=== PATIENT | male | born 1960 | race Two or more races ===

== ENCOUNTER 2025-03-30 20:53 | Inpatient (IN) | payer BC, OTHER, SELFPAY ==
--- NOTE | 2025-03-30 20:58 | EKG_ITS ---
[facility] Test Date: 2025-03-30 Pat Name: SARA OROZCO Department: Room: - Gender: Male [employer]rier: : 1960 Requested By: ED Temporary Provider Order Number: [id number] Reading MD: ED Temporary Provider Measurements Intervals Ramona Rate: 176 P: [place]: QRS: -31 QRSD: 92 T: 21 QT: 265 QTc: 455 Interpretive Statements ATRIAL FIBRILLATION WITH RAPID VENTRICULAR RESPONSE LEFT AXIS DEVIATION [QRS AXIS < -30] CRITICAL TEST RESULT No previous ECG available for comparison /store/S0/[id number].pdf
--- NOTE | 2025-03-30 21:07 | EDNOTE_ITS ---
ED Fever RME/HPI General Chief Complaint: General Adult/Misc Complain Stated Complaint: SENT HERE BY PCP. PT HAD ABNORMAL EKG Time Seen by Provider: 03/30/25 21:27 Arrival date/time: 03/30/25 20:53 RME / HPI RME / HPI Narrative: This section includes all my notes and documentations, including HPI, PE, and ED course. Dm Vital MD HPI: 64yo male with no significant past medical history with subjective fever for the last few days. And chills and generalized body aches. No fever or cough. He is not on any daily medications. No other complaints reported. ROS: All negative except as documented in HPI. Physical Exam: General: Alert and oriented. No acute distress when remaining still. Eyes: Conjunctivae and lids clear. ENT: No nasal congestion. Neck: Supple. Heart: Irregularly irregular tachycardia. Lungs: No respiratory distress. Good air movement. No significant rhonchi, wheezing, rales. Abdomen: Soft and nontender. Normal bowel sounds. No distension. No rebound or guarding. Back: No CVA tenderness. Skin: Warm and dry. Neuro: Alert and oriented X 3. I reviewed all diagnostic test results. My interpretation of the EKG is atrial fibrillation with RVR. My interpretation of the chest x-ray is NAD. Blood and urine test unremarkable. COVID/Influenza negative. At this point, diagnoses include new onset atrial fibrillation with RVR. Treatment here included Cardizem bolus and drip. Significant event noted. I discussed the case with our hospitalist. About the presentation and exam and diagnostics and treatments here. And need of further care in the hospital. Will accept the patient. Dm Vital MD Related Data Allergies Allergy/AdvReac Type Severity Reaction Status Date / Time No Known Allergies Allergy Verified 03/30/25 21:14 Review of Systems Review of Systems Systems Reviewed: All systems reviewed, normal except as documented Physical Exam Narrative Physical exam: As noted in HPI. Course Course Course Narrative: CXR is ordered for determining the etiology of fever. Quality Measures none Orders Category Date Time Status Admit to Inpatient Status Routine Admission 03/30/25 23:52 Active Patient Condition Routine Admission 03/30/25 23:52 Ordered Bedside COVID-19 Antigen Test NOW Care 03/30/25 21:09 Active Bedside Influenza A&B Antigen Test NOW Care 03/30/25 21:09 Completed COVID-19 Screening Questionnaire NOW Care 03/30/25 23:13 Active Decision to Admit X1 Care 03/30/25 23:13 Completed EKG (ED ONLY) *Do not use* NOW Care 03/30/25 20:58 Completed Miscellaneous Nursing Order NOW Care 03/30/25 23:52 Active Notify provider NEEDED Care 03/30/25 23:52 Active Saline [Insert IV] NOW Care 03/30/25 21:09 Active Straight [In and Out Catheter] X1 Care 03/30/25 21:09 Active Consult to Cardiology Routine Cons 03/30/25 23:49 Ordered EKG (ED Only) Stat Exams 03/30/25 20:58 Draft XR chest 1V portable Stat Exams 03/30/25 21:09 Completed BNP [B-Type Natriuretic Peptide] Stat Lab 03/30/25 21:18 Completed Bilirubin,Direct Stat Lab 03/30/25 21:18 Completed Blood Culture (Lab) Stat Lab 03/30/25 21:18 Received CBC Stat Lab 03/30/25 21:18 Completed CMP [Comprehensive Metabolic Panel] Stat Lab 03/30/25 21:18 Completed CRP [C-Reactive Protein] Stat Lab 03/30/25 21:18 Completed D-Dimer Stat Lab 03/30/25 21:18 Completed ESR [Sed Rate (ESR)] Stat Lab 03/30/25 21:18 Completed Free T4 (Free Thyroxine) Stat Lab 03/30/25 21:18 Completed Lactate (Lactic Acid) Stat Lab 03/30/25 21:18 Completed Magnesium Stat Lab 03/30/25 21:18 Completed PT [Prothrombin Time with INR] Stat Lab 03/30/25 21:18 Completed PTT [Partial Thromboplastin Time] Stat Lab 03/30/25 21:18 Completed Procalcitonin Stat Lab 03/30/25 21:18 Completed TSH [Thyroid Stimulating Hormone] Stat Lab 03/30/25 21:18 Completed Troponin I Stat Lab 03/30/25 21:18 Completed UA, C/S IF [Urinalysis, C/S if Indicated] Stat Lab 03/30/25 23:46 Completed DILTIAZEM in D5W 125 MG Med 03/30/25 21:09 Discontinued 125 mg in 125 ml IV 5 mg/hr DILTIAZEM in D5W 125 MG Med 03/30/25 23:48 Active 125 mg in 125 ml IV 7.5 mg/hr Diltiazem Inj [Cardizem Inj] Med 03/30/25 21:08 Discontinued 25 mg IV X1 ONE Code Status Routine Oth 03/30/25 23:50 Ordered Vital Signs Vital signs: Vital Signs Temperature 98.6 F 03/30/25 21:08 Pulse Rate 176 H 03/30/25 21:08 Respiratory Rate 19 03/30/25 21:08 Blood Pressure 153/90 H 03/30/25 21:08 Pulse Oximetry (%) 97 03/30/25 21:08 Oxygen Delivery Method Room Air 03/30/25 21:08 Fever MDM Narrative MDM Narrative:: 64yo male with no significant past medical history with subjective fever for the last few days. And chills and generalized body aches. No fever or cough. He is not on any daily medications. No other complaints reported. Patient data External records reviewed:: [facility] previous records (Per chart review, patient has no previous ED visits or admissions to this facility.) Clinical information provided by:: patient Social determinants that could affect healthcare access:: none Patient has the following chronic illnesses:: none How is presenting disease/condition affected by chronic disease/condition?: no chronic disease Evaluation data The following diagnostics were reviewed and interpreted by me:: lab results, rad iology exam(s) and EKG tracing(s) (My interpretation of the EKG is: Atrial fibrillation (176 bpm) with nonspecific ST-T changes. Dm Vital MD) Lab and/or radiology exams considered but not ordered:: none Interpretation Summary: I reviewed all diagnostic test results. My interpretation of the EKG is atrial fibrillation with RVR. My interpretation of the chest x-ray is NAD. Blood and urine test unremarkable. COVID/Influenza negative. Medications / Prescriptions Medications or Prescriptions considered but not ordered:: none Medication administrations:: Medication Administration History Acetaminophen (Acetaminophen 325 Mg Tablet) 650 mg PO Q6H PRN PRN Reason: Fever >100.4 or pain Stop: 04/29/25 23:54 Enoxaparin Sodium (Enoxaparin Sod Inj 40 Mg/0.4 Ml Syringe) 40 mg SC QDAY TK Stop: 04/14/25 08:59 Diltiazem HCl (Diltiazem In D5w 125 Mg) 125 mg in 125 mls @ 7.5 mls/hr IV .[id number] [facility] Stop: 04/29/25 23:47 Last Admin: 03/31/25 00:01 Dose: 7.5 mg/hr, 7.5 mls/hr Documented By: EF Discontinued Medications Diltiazem HCl (Diltiazem Inj 5 Mg/Ml Vial 5 Ml) 25 mg IV X1 ONE Stop: 03/30/25 21:09 Last Admin: 03/30/25 21:22 Dose: 25 mg Documented By: EF Diltiazem HCl (Diltiazem In D5w 125 Mg) 125 mg in 125 mls @ 5 mls/hr IV .Q24H [facility] Stop: 04/29/25 21:08 Last Admin: 03/30/25 21:22 Dose: 5 mg/hr, 5 mls/hr Documented By: EF Ondansetron HCl (Ondansetron Inj 2 Mg/Ml Inj 2 Ml) 4 mg IVP Q6H PRN; Protocol PRN Reason: NAUSEA OR VOMITING Stop: 04/29/25 23:54 Potassium Chloride (Potassium Chloride 10% 20 Meq/15 Ml Udc) 40 meq PO X1 ONE Stop: 03/31/25 00:06 Last Admin: 03/31/25 00:56 Dose: 40 meq Documented By: EF Cardizem bolus and drip. Consultations Consultation(s) initiated? (list below): Yes Consultation #1 (Physician, Specialty, Details): I discussed the case with our hospitalist. About the presentation and exam and diagnostics and treatments here. And need of further care in the hospital. Will accept the patient. Diagnosis Fever Differential Diagnosis: community acquired pneumonia, viral infection, influenza and other (COVID, URI) Most likely diagnosis given after review of the tests above:: New onset atrial fibrillation with RVR Admission Indicated Admission indicated?: indicated Explain why admission is indicated or not indicated:: New onset atrial fibrillation with RVR Admission Request Was there a request for admission?: Yes Admission Attestation Admission request attestation: Discussed case with Hospitalist service regarding admission. Discussed patients ED course, exam findings, labs, and radiology results. The Hospitalist [agrees] to accept the patient for admission. Disposition Plan Disposition Plan: Admit Critical Care Time Critical Care Time Critical Care Time: Yes Total Critical Care Time (min.): 35 Attestation: Due to a high probability of clinically significant, life threatening det erioration, the patient required my highest level of preparedness to intervene emergently and I personally spent this critical care time directly and personally managing the patient. This critical care time included obtaining a history; examining the patient; ordering and review of studies; arranging urgent treatment with development of a management plan; evaluation of patient's response to treatment; frequent reassessment; and discussions with family and other providers. It was exclusive of separately billable procedures and treating other patients and teaching time. Dm Vital MD Discharge Plan Plan Patient Disposition: Admit Acute Care w/in Hospital Problem List Clinical Impression: Atrial fibrillation with RVR
[2025-03-30 21:08] VITALS: BP 153/90; PULSE 176; RESP 19; TEMP 37; O2SAT 97
--- NOTE | 2025-03-30 21:09 | XR_ITS ---
Examination: AP chest single view TECHNIQUE: AP portable upright chest single view Date and time: March 30, 2025, 2107 hours INDICATIONS: Fever shortness of breath today FINDINGS: Normal heart size Ectatic thoracic aorta. No pneumonia or pulmonary edema IMPRESSION: No pneumonia or pulmonary edema
[2025-03-30 21:19] VITALS: BMI 33.9
[2025-03-30 21:22] VITALS: BP 151/11; BP 151/111; PULSE 155; PULSE 171
[2025-03-30] MEDS: DILTIAZEM INJ 5 MG/ML VIAL 5 ML 25 MG IV (21:22)
[2025-03-30] MEDS: DILTIAZEM in D5W 125 MG 125 MG/125 ML BAG IV (21:22)
[2025-03-30 21:30] LABS: Lactate (Lactic Acid) 1.3 mMol/L (0.4-2.0)
[2025-03-30 21:32] VITALS: PULSE 102
[2025-03-30 21:32] LABS: Basophils # (Auto) 0.1 Thou/mm3 (0.0-0.2); Basophils % (Auto) 1 % (0-2.5); Eosinophils # (Auto) 0.1 Thou/mm3 (0.0-0.5); Eosinophils % (Auto) 1 % (0-10); Hematocrit 47.0 % (41.0-53.0); Hemoglobin 15.6 g/dL (13.5-16.0); Immature Granulocytes Auto 0.04 Thou/mm3 (0.00-0.00); Lymphocytes # (Auto) 2.8 Thou/mm3 (1.0-4.8); Lymphocytes % (Auto) 24 % (10-50); Mean Corpuscular HGB Conc 33.2 g/dl (31.0-37.0); Mean Corpuscular Hemoglobin 29.1 pg (25.0-35.0); Mean Corpuscular Volume 88 fL (80-100); Monocytes # (Auto) 1.7 Thou/mm3 (0.0-0.8); Monocytes % (Auto) 15 % (0-12); Neutrophils # (Auto) 6.6 Thou/mm3 (1.8-7.7); Neutrophils % (Auto) 58 % (37-80); Nucleated Red Blood Cell # 0.00 Thou/mm3 (0.00-0.00); Nucleated Red Blood Cell % 0 /100 WBC (0); Platelet Count 312 Thou/mm3 (140-440); RDW Standard Deviation 41.0 fL (35.1-43.9); Red Blood Count 5.37 Miln/mm3 (4.50-5.90); White Blood Count 11.4 Thou/mm3 (3.8-10.6)
[2025-03-30 21:48] LABS: INR 1.0 (0.9-1.3); Partial Thromboplastin Time 30.5 Seconds (22.0-36.0); Prothrombin Time 11.1 Seconds (9.0-12.2)
[2025-03-30 21:50] LABS: Sed Rate (ESR) 57 mm/hr (0-20)
[2025-03-30 22:26] LABS: D-Dimer 657 ng/mL (<600)
[2025-03-30 22:36] LABS: Alanine Aminotransferase 10 U/L (10-49); Albumin, Serum 4.8 gm/dL (3.4-4.8); Albumin/Globulin Ratio 1.5 (1.2-2.2); Alkaline Phosphatase 90 U/L (46-116); Anion Gap 11 (7-16); Aspartate Amino Transferase 16 U/L (0-34); BUN/Creatinine Ratio 11 Ratio (12-20); Bilirubin,Direct 0.2 mg/dL (0.0-0.3); Bilirubin,Total 0.8 mg/dL (0.3-1.2); Blood Urea Nitrogen 13 mg/dL (9-23); Calcium 9.9 mg/dL (8.3-10.6); Calcium (Corrected) 9.9 mg/dL (8.5-10.1); Carbon Dioxide 23.7 mMol/L (20.0-31.0); Chloride 104 mMol/L (98-107); Creatinine (Component) 1.2 mg/dL (0.6-1.3); Estimated Creatinine Clearance 79.8 mL/min (>60); Free T4 (Free Thyroxine) 1.48 ng/dL (0.89-1.76); Globulin 3.3 gm/dL (2.3-3.5); Glucose 110 mg/dL (74-106); Magnesium 2.0 mg/dL (1.6-2.6); Osmolality,Calculated 278 (275-295); Potassium 3.7 mMol/L (3.4-5.1); Procalcitonin 0.10 ng/ml (0.0-0.49); Sodium 139 mMol/L (136-145); Thyroid Stimulating Hormone 2.90 uIU/mL (0.55-4.78); Total Protein 8.1 gm/dL (5.7-8.2); Troponin I < 0.020 ng/mL (0.0-0.045); eGFR > 60 See Note
[2025-03-30 22:48] LABS: C-Reactive Protein 4.7 mg/dL (0.0-0.9)
[2025-03-30 22:52] LABS: B-Type Natriuretic Peptide 67 pg/mL (0-100)
[2025-03-30 23:50] LABS: Collection Type, Urine Clean Catch; Squamous Epithelial Cell,Urine 0 /hpf (0-5)
[2025-03-31] VITALS (9 sets, daily range): BP systolic 116–138; BP diastolic 83–104; PULSE 69–118; RESP 18–27; TEMP 36–37.2; O2SAT 93–96
--- NOTE | 2025-03-31 | PD.RESHP ---
Documentation for date of: 03/31/25 HPI History of Present Illness Chief complaint: afib w/ RVR History of present illness: 64 y/o M with no significant past medical history presented from his PCP with complaints of A-fib with RVR. Per the patient he has been complaining of fevers, chills for 5 days, and went to see his PCP. At the office he was told he needed to go to the ED for a fast heart rate. In ED patient noted to have A-fib with RVR, confirmed by EKG which showed heart rate 176. Patient given Cardizem bolus and placed on Cardizem drip, at time of exam heart rate was between 100?125. Patient denied chest pain, shortness of breath, headache, fatigue, lightheadedness, weakness, palpitations. Patient also denied nausea, vomiting, dysuria, constipation, diarrhea. ED COURSE: Labs significant for: WBC 11.4, ESR 57, CRP 4.7, potassium 3.7. Imaging significant for: Chest x-ray negative, EKG showing A-fib with RVR at 176 bpm. Patient received diltiazem bolus and drip in the ED. Has remained hemodynamically stable, afebrile. PMH: None PSH: None SH: Denies alcohol, tobacco, illicit drug use Allergies:?NKDA Medications: None Review of Systems Review of Systems Systems Reviewed: All systems reviewed, normal except as documented Past Medical History Past Medical History Comments PMH COMMENT: PMH: None PSH: None SH: Denies alcohol, tobacco, illicit drug use Allergies:?NKDA Medications: None Exam Vital Signs Temp Pulse Resp BP Pulse Ox O2 Del Method 98.6 F 102 H 19 151/11 H 97 Room Air 03/30/25 21:08 03/30/25 21:32 03/30/25 21:08 03/30/25 21:22 03/30/25 21:08 03/30/25 21:08 Narrative Exam PE: Gen: Well-developed and well-nourished. HEENT: NCAT, PERRLA, EOMI, MMM, anicteric conjunctivae. CVS: normal S1 and S2. No M/R/G. A-fib, tachycardia. Resp: CTA B/L. No rhonchi, rales, crackles or wheezing. Abd: soft, non-tender, non-distended. BS+ in all 4 quadrants. MSK: Good ROM in BUE & BLE. No edema or rash. Neuro: CN II-XII grossly intact. Strength 5/5 in BUE & BLE. Alert and oriented x3. Psych: appropriate mood and affect. Results: Labs 03/31/25 04:39 03/30/25 21:18 Labs: Short CBC 03/30/25 Range/Units 21:18 WBC 11.4 H (3.8-10.6) Thou/mm3 Hgb 15.6 (13.5-16.0) g/dL Hct 47.0 (41.0-53.0) % Plt Count 312 (140-440) Thou/mm3 BMP 03/30/25 21:18 Sodium 139 Potassium 3.7 Chloride 104 Carbon Dioxide 23.7 BUN 13 Creatinine 1.2 Glucose 110 H Calcium 9.9 Cardiac Enzymes 03/30/25 Range/Units 21:18 Troponin I < 0.020 (0.0-0.045) ng/mL Liver Function 03/30/25 Range/Units 21:18 Total Bilirubin 0.8 (0.3-1.2) mg/dL Direct Bilirubin 0.2 (0.0-0.3) mg/dL AST 16 (0-34) U/L ALT 10 (10-49) U/L Alkaline Phosphatase 90 (46-116) U/L Albumin 4.8 (3.4-4.8) gm/dL Quality Measures Quality Measures VTE prophylaxis Advance care planning discussed with:: patient and spouse Medications Home Medications and Allergies Allergies Allergy/AdvReac Type Severity Reaction Status Date / Time No Known Allergies Allergy Verified 03/30/25 21:14 Visit Medications Acetaminophen (Acetaminophen 325 Mg Tablet) 650 mg PO Q6H PRN PRN Reason: Fever >100.4 or pain Stop: 04/29/25 23:54 Enoxaparin Sodium (Enoxaparin Sod Inj 40 Mg/0.4 Ml Syringe) 40 mg SC QDAY ON [facility] OF [facility] Stop: 04/14/25 08:59 Diltiazem HCl (Diltiazem In D5w 125 Mg) 125 mg in 125 mls @ 7.5 mls/hr IV .[id number] TK Stop: 04/29/25 23:47 Ondansetron HCl (Ondansetron Inj 2 Mg/Ml Inj 2 Ml) 4 mg IVP Q6H PRN; Protocol PRN Reason: NAUSEA OR VOMITING Stop: 04/29/25 23:54 Discontinued Medications Diltiazem HCl (Diltiazem Inj 5 Mg/Ml Vial 5 Ml) 25 mg IV X1 ONE Stop: 03/30/25 21:09 Last Admin: 03/30/25 21:22 Dose: 25 mg Diltiazem HCl (Diltiazem In D5w 125 Mg) 125 mg in 125 mls @ 5 mls/hr IV .Q24H TK Stop: 04/29/25 21:08 Last Admin: 03/30/25 21:22 Dose: 5 mg/hr, 5 mls/hr Assessment & Plan Plan 64 y/o M with no significant past medical history presented from his PCP with complaints of A-fib with RVR, admitted for new onset A-fib. #A-fib with RVR, new onset Patient was sent to ED from doctor's office due to new onset A-fib with RVR. In ED EKG showed A-fib with RVR at 176 bpm, exam no murmur on auscultation. Patient received Cardizem bolus and drip in ED, heart rate decreased to 100?125. [id number] score 1 - No indication for anticoagulation at this time. - Cardiology Dr. Wesley consulted, appreciate recommendations - Cardizem drip 7.5 mg/h - Maintain potassium greater than 4 magnesium greater than 2 - Telemonitoring - Echo ordered, follow-up results #Elevated blood pressure BP 150/100 No prior diagnosis of HTN Follow up blood pressure readings. Patient education. DVT prophylaxis: Lovenox GI prophylaxis: None Diet: Cardiac Lines: Peripheral IV Code status: Full code Plan of care discussed with attending Dr. Rafa Paulson MD PGY-2 Attending Provider Attestation/Addendum Attending Provider Attestation/Addendum After examination of the patient and review of the clinical data I feel that this patient needs admission to the hospital for further treatment/evaluation. I Melvin Craig MD, attest that I was physically present for curran portions of evaluation, and examined patient, labs and imagings and plan of care were discussed with IM residents team, and I agree with the findings and plans documented above.
[2025-03-31] MEDS: DILTIAZEM in D5W 125 MG 125 MG/125 ML BAG 7.5 MG IV (00:01)
[2025-03-31 00:08] LABS: Bilirubin,Urine Negative (Negative); Blood,Urine Negative (Negative); Clarity,Urine Clear (Clear/Hazy); Color,Urine Yellow (Lt Yel-Yel); Culture Indicated,Urine Not Indicated; Glucose, Urine Negative (Negative); Hyaline Casts,Urine < 1 /hpf (0-1); Ketones,Urine Negative (Negative); Leukocyte Esterase,Urine Negative (Negative); Nitrite,Urine Negative (Negative); PH,Urine 6.0 (5.0-7.0); Protein,Urine Trace (Neg - Trace); RBC,Urine 1 /hpf (0-3); Specific Gravity,Urine 1.022 (1.001-1.035); Urobilinogen,Urine Negative mg/dL (0.0-1.0); WBC,Urine < 1 /hpf (0-5)
[2025-03-31] MEDS: POTASSIUM CHLORIDE 10% 20 MEQ/15 ML UDC 40 MEQ PO (00:56)
[2025-03-31 04:57] LABS: Basophils # (Auto) 0.1 Thou/mm3 (0.0-0.2); Basophils % (Auto) 1 % (0-2.5); Eosinophils # (Auto) 0.1 Thou/mm3 (0.0-0.5); Eosinophils % (Auto) 1 % (0-10); Hematocrit 44.1 % (41.0-53.0); Hemoglobin 14.7 g/dL (13.5-16.0); Immature Granulocytes Auto 0.04 Thou/mm3 (0.00-0.00); Lymphocytes # (Auto) 2.2 Thou/mm3 (1.0-4.8); Lymphocytes % (Auto) 22 % (10-50); Mean Corpuscular HGB Conc 33.3 g/dl (31.0-37.0); Mean Corpuscular Hemoglobin 29.2 pg (25.0-35.0); Mean Corpuscular Volume 88 fL (80-100); Monocytes # (Auto) 1.4 Thou/mm3 (0.0-0.8); Monocytes % (Auto) 14 % (0-12); Neutrophils # (Auto) 6.1 Thou/mm3 (1.8-7.7); Neutrophils % (Auto) 62 % (37-80); Nucleated Red Blood Cell # 0.00 Thou/mm3 (0.00-0.00); Nucleated Red Blood Cell % 0 /100 WBC (0); Platelet Count 297 Thou/mm3 (140-440); RDW Standard Deviation 39.9 fL (35.1-43.9); Red Blood Count 5.04 Miln/mm3 (4.50-5.90); White Blood Count 10.0 Thou/mm3 (3.8-10.6)
[2025-03-31 05:14] LABS: Cardiac Risk Estimate 4.6 RATIO (4.0-6.7); Cholesterol 153 mg/dL (132-200); HDL Cholesterol 33 mg/dL (40-60); LDL Cholesterol,Calculated 98 mg/dL (0-130); Magnesium 1.7 mg/dL (1.6-2.6); Phosphorous 3.8 mg/dL (2.4-5.1); Triglycerides 109 mg/dL (30-150)
--- NOTE | 2025-03-31 08:33 | PD.RESCONSUL ---
HPI Data of Consult Requesting Physician: Melvin Craig MD Admitting Provider: Melvin Craig MD Attending Provider: Melvin Craig MD Primary Care Provider: Suleiman Waldrop MD Consult Narrative History of present illness: The patient is 64-year-old male with no significant past medical history presents to the ED with a chief complaint of subjective fevers body aches and chills for the past 5 days. The patient went to his PCPs office for evaluation, was found to have a rapid heart rate and was directed to go to the emergency room for further evaluation. In the ED patient was found to have A-fib RVR heart rate in the 170s, started on diltiazem drip, patient denied chest pain, shortness of breath, fatigue, lightheadedness, or palpitations. Patient also denied nausea vomiting diarrhea. The patient reported he has no awareness of palpitations in the past, did not know if his heart was beating fast when he came to the ED this visit. Patient did report that he fell over a week ago on his left shoulder, now continues to have pain on his left shoulder. Takes NSAIDs occasionally. Initial vitals in the ED were temperature 98.6, pulse rate 176/min, respiratory rate 19/min, Blood pressure 153/90, saturating 97% on room air, EKG was done which showed atrial fibrillation with rapid ventricular rate, patient was given Cardizem bolus 25 mg IV x 1, and started on Cardizem drip at 5 Mg per hour which was later increased to 10 Mg per hour, also given enoxaparin 40 mg x 1 last month. Initial labs in ED showed WBC 11.4, hemoglobin 15.6, platelets 312, sodium 139 potassium 3.7, carbon oxide 23.7, BUN 13, creatinine 1.2, glucose 110, initial troponins were negative, normal T. bili and liver enzymes. Past medical and surgical history: Reported no medical disorders, no home medications except occasionally NSAIDs for joint aches and pains, history of ankle fracture 25 years ago. 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 cc:: cc: Melvin Craig MD Review of Systems Review of Systems Systems Reviewed: All systems reviewed, normal except as documented Exam Vital Signs Temp Pulse Resp BP Pulse Ox O2 Del Method 98.7 F 108 H 18 123/94 H 96 Room Air 03/31/25 07:01 03/31/25 07:01 03/31/25 07:01 03/31/25 07:01 03/31/25 07:01 03/31/25 07:01 Narrative Exam General: Well appearing, well nourished, in no distress. Oriented x 3, normal mood and affect . Ambulating without difficulty. Skin: Good turgor, no rash, unusual bruising or prominent lesions Head: Normocephalic, atraumatic, no visible or palpable masses, depressions, or scaring. Eyes: Visual acuity intact, conjunctiva clear, sclera non-icteric, EOM intact, PERRL, no exudates or hemorrhages Heart: No cardiomegaly or thrills; irregular rate and rhythm, no murmur or gallop Lungs: Clear to auscultation and percussion. No rales, wheeze, or rhonchi Abdomen: Bowel sounds normal, no tenderness, organomegaly, masses, or hernia Back: Spine normal without deformity or tenderness, no CVA tenderness Extremities: No amputations or deformities, cyanosis, edema or varicosities, peripheral pulses intact Musculoskeletal: Normal gait and station. No misalignment, asymmetry, crepitation, defects, tenderness, masses, effusions, decreased range of motion, instability, atrophy or abnormal strength or tone in the head, neck, spine, ribs, pelvis or extremities. Results Labs 04/01/25 05:37 04/01/25 05:37 Labs: Short CBC 03/30/25 03/31/25 Range/Units 21:18 04:39 WBC 11.4 H 10.0 (3.8-10.6) Thou/mm3 Hgb 15.6 14.7 (13.5-16.0) g/dL Hct 47.0 44.1 (41.0-53.0) % Plt Count 312 297 (140-440) Thou/mm3 BMP 03/30/25 21:18 Sodium 139 Potassium 3.7 Chloride 104 Carbon Dioxide 23.7 BUN 13 Creatinine 1.2 Glucose 110 H Calcium 9.9 Cardiac Enzymes 03/30/25 Range/Units 21:18 Troponin I < 0.020 (0.0-0.045) ng/mL Liver Function 03/30/25 Range/Units 21:18 Total Bilirubin 0.8 (0.3-1.2) mg/dL Direct Bilirubin 0.2 (0.0-0.3) mg/dL AST 16 (0-34) U/L ALT 10 (10-49) U/L Alkaline Phosphatase 90 (46-116) U/L Albumin 4.8 (3.4-4.8) gm/dL Urine 03/30/25 Range/Units 23:46 Urine Color Yellow (Lt Yel-Yel) Urine Clarity Clear (Clear/Hazy) Urine pH 6.0 (5.0-7.0) Ur Specific Parker 1.022 (1.001-1.035) Urine Protein Trace (Neg - Trace) Urine Glucose (UA) Negative (Negative) Quality Measures Quality Measures VTE prophylaxis Advance care planning discussed with:: patient Medications Home Medications and Allergies Home Medications ?Medication ?Instructions ?Recorded ?Confirmed ?Type No Known Home Medications 03/31/25 03/31/25 History Allergies Allergy/AdvReac Type Severity Reaction Status Date / Time No Known Allergies Allergy Verified 03/30/25 21:14 Visit Medications Acetaminophen (Acetaminophen 325 Mg Tablet) 650 mg PO Q6H PRN PRN Reason: Fever >100.4 or pain Stop: 04/29/25 23:54 Enoxaparin Sodium (Enoxaparin Sod Inj 40 Mg/0.4 Ml Syringe) 40 mg SC QDAY [facility] Stop: 04/14/25 08:59 Diltiazem HCl (Diltiazem In D5w 125 Mg) 125 mg in 125 mls @ 7.5 mls/hr IV .[id number] TK Stop: 04/29/25 23:47 Last Admin: 03/31/25 00:01 Dose: 7.5 mg/hr, 7.5 mls/hr Magnesium Sulfate (Magnesium Sulfate Ivpb) 4 gm in 50 mls @ 12.5 mls/hr IV X1 ONE Stop: 03/31/25 12:30 Discontinued Medications Diltiazem HCl (Diltiazem Inj 5 Mg/Ml Vial 5 Ml) 25 mg IV X1 ONE Stop: 03/30/25 21:09 Last Admin: 03/30/25 21:22 Dose: 25 mg Diltiazem HCl (Diltiazem In D5w 125 Mg) 125 mg in 125 mls @ 5 mls/hr IV .Q24H TK Stop: 04/29/25 21:08 Last Admin: 03/30/25 21:22 Dose: 5 mg/hr, 5 mls/hr Ondansetron HCl (Ondansetron Inj 2 Mg/Ml Inj 2 Ml) 4 mg IVP Q6H PRN; Protocol PRN Reason: NAUSEA OR VOMITING Stop: 04/29/25 23:54 Potassium Chloride (Potassium Chloride 10% 20 Meq/15 Ml Udc) 40 meq PO X1 ONE Stop: 03/31/25 00:06 Last Admin: 03/31/25 00:56 Dose: 40 meq Assessment & Plan Plan The patient is 64-year-old male with no significant past medical history presents to the ED with a chief complaint of subjective fevers body aches and chills for the past 5 days. The patient went to his PCPs office for evaluation, was found to have a rapid heart rate and was directed to go to the emergency room for further evaluation. Patient also denied nausea vomiting diarrhea. Patient did report that he fell over a week ago on his left shoulder, now continues to have pain on his left shoulder. Takes NSAIDs occasionally. Problems: 1. A-fib with RVR 2. Elevated blood pressure without diagnosis of hypertension 3. Left shoulder pain, following mechanical fall In the ED patient was found to have A-fib RVR heart rate in the 170s, started on diltiazem drip, patient denied chest pain, shortness of breath, fatigue, lightheadedness, or palpitations. The patient reported he has no awareness of palpitations in the past, did not know if his heart was beating fast when he came to the ED this visit. Was initially started on diltiazem drip, rate controlled at 10 Mg per hour. Patient has no history of heart failure, unknown EF, recommend to start patient on metoprolol XL 100 Mg daily, discontinue diltiazem drip after 2 hours overlap with metoprolol. [id number] score 2, patient will require echocardiogram for evaluation of EF, we will continue with rate control strategy for now, the patient might require outpatient NORMAN and workup if cardioversion is possible. ? Continue metoprolol XL 100 mg daily ? Monitor for hypotension or bradycardia ? Recommend anticoagulation as [id number] 2, annualized risk of stroke 2.2%, will need to go over risk benefit as well as affordability with patient to ensure compliance. Rest of the management deferred to primary team. Thank you for cardiology consultation. We appreciate the opportunity to participate in this patient's care. Will continue to follow-up on this patient This case was discussed with customer service agent, Dr. Wesley. Peri Fernandez MD PG3
[2025-03-31] MEDS: ENOXAPARIN SOD INJ 40 MG/0.4 ML SYRINGE SC (09:40)
[2025-03-31] MEDS: Magnesium Sulfate 4 GM Ivpb 4 GM/50 ML BAG IV (09:40)
[2025-03-31] MEDS: DILTIAZEM in D5W 125 MG 125 MG/125 ML BAG 10 MG IV ×2 (09:49→14:14)
--- NOTE | 2025-03-31 12:51 | ESPR_ITS ---
<Statement entered by Cruzito Velasquez MD - 04/01/25 13:54> Patient was examined and case was reviewed with team including attending physician. Note reviewed, I agree with most of its contents and agree with the patient's care. Case discussed with my attending Dr. Raji Velasquez MD PGY-2 Documentation for date of: 03/31/25 Subjective Subjective Interval history: No overnight events. Evaluated at bedside. Pt still in a fib rvr with rate of 126. VS stable. Increase diltiazem drip from 7.5mg/h to 10mg/h. TSH WNL. Pt denies alcohol or drug use. FREDDY-VASc score of 1. No anticoag indicated at this point. Cardiology consulted, recommended metoprolol xl 100mg and dilt drip to be d/c after 2hrs overlap. Exam Vital Signs Temp Pulse Resp BP Pulse Ox O2 Del Method 98.7 F 91 18 135/87 H 96 Room Air 03/31/25 07:01 03/31/25 09:49 03/31/25 07:01 03/31/25 09:49 03/31/25 07:01 03/31/25 07:01 Narrative Exam General: Well appearing, well nourished, in no distress. Oriented x 3, normal mood and affect . Ambulating without difficulty. Skin: Good turgor, no rash, unusual bruising or prominent lesions Head: Normocephalic, atraumatic, no visible or palpable masses, depressions, or scaring. Eyes: Visual acuity intact, conjunctiva clear, sclera non-icteric, EOM intact, PERRL, no exudates or hemorrhages Heart: No cardiomegaly or thrills; irregular rate and rhythm, no murmur or gallop Lungs: Clear to auscultation and percussion. No rales, wheeze, or rhonchi Abdomen: Bowel sounds normal, no tenderness, organomegaly, masses, or hernia Back: Spine normal without deformity or tenderness, no CVA tenderness Extremities: No amputations or deformities, cyanosis, edema or varicosities, peripheral pulses intact Musculoskeletal: Normal gait and station. No misalignment, asymmetry, crepitation, defects, tenderness, masses, effusions, decreased range of motion, instability, atrophy or abnormal strength or tone in the head, neck, spine, ribs, pelvis or extremities. Objective Labs 04/01/25 05:37 04/01/25 05:37 Labs: Laboratory Results - last 24 hr 03/30/25 03/30/25 03/31/25 21:18 23:46 04:39 WBC 11.4 H 10.0 RBC 5.37 5.04 Hgb 15.6 14.7 Hct 47.0 44.1 MCV 88 88 MCH 29.1 29.2 MCHC 33.2 33.3 RDW Std Deviation 41.0 39.9 Plt Count 312 297 Neut % (Auto) 58 62 Lymph % (Auto) 24 22 [place] % (Auto) 15 H 14 H Eos % (Auto) 1 1 Baso % (Auto) 1 1 Neut # (Auto) 6.6 6.1 Lymph # (Auto) 2.8 2.2 [place] # (Auto) 1.7 H 1.4 H Eos # (Auto) 0.1 0.1 Baso # (Auto) 0.1 0.1 Immature Gran # (Auto) 0.04 H 0.04 H Absolute Nucleated RBC 0.00 0.00 Immature Gran % 0 0 Nucleated RBC % 0 0 ESR 57 H PT 11.1 INR 1.0 APTT 30.5 D-Dimer 657 H Sodium 139 Potassium 3.7 Chloride 104 Carbon Dioxide 23.7 Anion Gap 11 BUN 13 Creatinine 1.2 Estim Creat Clear Calc 79.8 eGFR > 60 BUN/Creatinine Ratio 11 L Glucose 110 H Calculated Osmolality 278 Lactic Acid 1.3 Calcium 9.9 Corrected Calcium 9.9 Phosphorus 3.8 Magnesium 2.0 1.7 Total Bilirubin 0.8 Direct Bilirubin 0.2 AST 16 ALT 10 Alkaline Phosphatase 90 Troponin I < 0.020 C-Reactive Prot, Quant 4.7 H B-Natriuretic Peptide 67 Total Protein 8.1 Albumin 4.8 Globulin 3.3 Albumin/Globulin Ratio 1.5 Triglycerides 109 Cholesterol 153 LDL Cholesterol, Calc 98 HDL Cholesterol 33 L Cholesterol/HDL Ratio 4.6 Procalcitonin 0.10 TSH 2.90 Free T4 1.48 Ur Collection Type Clean Catch Urine Color Yellow Urine Clarity Clear Urine pH 6.0 Ur Specific [place] 1.022 Urine Protein Trace Urine Glucose (UA) Negative Urine Ketones Negative Urine Blood Negative Urine Nitrite Negative Urine Bilirubin Negative Urine Urobilinogen (Auto) Negative Ur Leukocyte Esterase Negative Urine RBC 1 Urine WBC < 1 Ur Squamous Epith Cells 0 Urine Bacteria None Hyaline Casts < 1 Ur Culture Indicated? Not Indicated Quality Measures Quality Measures VTE prophylaxis Advance care planning discussed with:: patient Assessment & Plan Assessment Current Active Medications: Generic Name Dose Route Start Last Admin Trade Name Luann PRN Reason Stop Dose Admin Acetaminophen 650 mg 03/30/25 23:55 Acetaminophen 325 Mg Tablet PO 04/29/25 23:54 Q6H PRN Fever >100.4 or pain Enoxaparin Sodium 40 mg 03/31/25 09:00 03/31/25 09:40 Enoxaparin Sod Inj 40 Mg/0.4 Ml Syringe SC 04/14/25 08:59 40 mg QDAY TK Administration Magnesium Sulfate 2 gm in 50 mls @ 25 mls/hr 03/31/25 13:00 Magnesium Sulfate Ivpb IV 03/31/25 14:59 X1 ONE Diltiazem HCl 125 mg in 125 mls @ 10 mls/hr 03/31/25 09:34 03/31/25 09:49 Diltiazem In D5w 125 Mg IV 04/30/25 09:33 10 mg/hr .[id number] TK 10 mls/hr Administration 10 MG/HR Plan 64M with no known PMH admitted for new onset A fib rvr currently rate controlled with diltiazem drip 10mg/h. Cardiology consulted, switch to metoprolol xl 100mg QD with dilt drip to be d/c after 2 hrs overlap. #New onset a fib rvr Pt denies any past medical histroy, denies taking any prescriptional drug. Denies any cardiac history, alcohol use, drug use. Initial TSH 2.9. Free T4 1.48. FREDDY-VASc score of 1 (Age 64 +1) 03/30 EKG showed A fib rvr with rate of 176. CXR unremarkable. 03/31 Pt still in a fib rvr with rate of 126. Increased diltiazem drip rate to 10mg/h. Dx: - Repeat EKG as needed or new onset chest pain, sob. Tx: - Diltiazem 25mg x 1 - Card consulted, switch to metoprolol xl 100mg QD and d/c dilt drip after 2h overlap - Consider amio for rhythm control - No anticoag indicated for FREDDY-VASc score of 1. - Pending echo Dispo: Tele DVT prophylaxis: Heparin GI prophylaxis: Not indicated Diet: Cardiac diet Lines: Peripheral IV Code status: Full code Case discussed with my senior resident Dr. Thrasher Case discussed with my attending Dr. Raji Guerra DO PGY 1 Attending Provider Attestation/Addendum I have examined the patient, reviewed labs and imaging findings, discussed the case with the resident(s), and reviewed entered orders. I agree with the plan of care as outlined in this note, with these additional summaries/recommendations: Patient seen at bedside. No acute overnight events. Patient presented with new onset atrial fibrillation with rapid ventricular response. Differential diagnosis includes sleep apnea, toxin, thyroid, or drugs. He has no history of recent bleeding or other contraindication for anticoagulation. He is currently hemodynamically stable and not yet rate controlled. Patient's [id number] score is 1 point indicating 0.9 9% risk of stroke/TIA/systemic embolism per year. Has bled score 1 point indicating 3.4% risk of bleed per year which is considered low risk. Continue EKG as needed for chest pain. Continue to monitor on telemetry. Monitor electrolytes closely. Order TSH and echocardiogram. D-dimer minimally elevated and low suspicion for pulmonary embolism at this time although we will continue to monitor and obtain additional imaging if needed. Continue rate control with diltiazem gtt. Increased rate. Cardiology following, recommendations appreciated. Anticoagulation not indicated off [id number] score. Recommend outpatient sleep study. Patient updated on the plan at and in agreement. All questions answered to satisfaction. Please see residents note for additional details and management. Dr. Raji MD
[2025-03-31] MEDS: Magnesium Sulfate 2 GM Ivpb 2 GM/50 ML BAG IV (14:20)
[2025-03-31] MEDS: METOPROLOL SUCCINATE XL 25 MG TABCR 100 MG PO (17:32)
[2025-04-01] VITALS (7 sets, daily range): BP systolic 108–129; BP diastolic 58–97; PULSE 67–104; RESP 15–19; TEMP 36.1–36.3; O2SAT 94–98; BMI 34.1
[2025-04-01 06:09] LABS: Basophils # (Auto) 0.2 Thou/mm3 (0.0-0.2); Basophils % (Auto) 1 % (0-2.5); Eosinophils # (Auto) 0.2 Thou/mm3 (0.0-0.5); Eosinophils % (Auto) 2 % (0-10); Hematocrit 44.5 % (41.0-53.0); Hemoglobin 14.9 g/dL (13.5-16.0); Immature Granulocytes Auto 0.05 Thou/mm3 (0.00-0.00); Lymphocytes # (Auto) 2.0 Thou/mm3 (1.0-4.8); Lymphocytes % (Auto) 17 % (10-50); Mean Corpuscular HGB Conc 33.5 g/dl (31.0-37.0); Mean Corpuscular Hemoglobin 29.3 pg (25.0-35.0); Mean Corpuscular Volume 88 fL (80-100); Monocytes # (Auto) 1.3 Thou/mm3 (0.0-0.8); Monocytes % (Auto) 11 % (0-12); Neutrophils # (Auto) 8.0 Thou/mm3 (1.8-7.7); Neutrophils % (Auto) 68 % (37-80); Nucleated Red Blood Cell # 0.00 Thou/mm3 (0.00-0.00); Nucleated Red Blood Cell % 0 /100 WBC (0); Platelet Count 318 Thou/mm3 (140-440); RDW Standard Deviation 40.5 fL (35.1-43.9); Red Blood Count 5.08 Miln/mm3 (4.50-5.90); White Blood Count 11.7 Thou/mm3 (3.8-10.6)
[2025-04-01 06:41] LABS: Glucose Estimated Average 128 mg/dL (80-131); Hemoglobin A1C 6.1 % Hgb (4.8-6.0)
[2025-04-01 06:48] LABS: Anion Gap 6 (7-16); BUN/Creatinine Ratio 11 Ratio (12-20); Blood Urea Nitrogen 11 mg/dL (9-23); Calcium 8.9 mg/dL (8.3-10.6); Carbon Dioxide 27.6 mMol/L (20.0-31.0); Chloride 105 mMol/L (98-107); Creatinine (Component) 1.0 mg/dL (0.6-1.3); Estimated Creatinine Clearance 96.1 mL/min (>60); Glucose 102 mg/dL (74-106); Magnesium 2.4 mg/dL (1.6-2.6); Osmolality,Calculated 276 (275-295); Phosphorous 3.5 mg/dL (2.4-5.1); Potassium 4.3 mMol/L (3.4-5.1); Sodium 139 mMol/L (136-145); eGFR > 60 See Note
[2025-04-01] MEDS: METOPROLOL SUCCINATE XL 25 MG TABCR 100 MG PO (08:07)
[2025-04-01] MEDS: ENOXAPARIN SOD INJ 40 MG/0.4 ML SYRINGE SC (08:07)
--- NOTE | 2025-04-01 10:40 | CHAP ---
Patient was the of one of our volunteers. I gave words of encouagement and prayer.
--- NOTE | 2025-04-01 12:25 | PD.RESPRO ---
Documentation for date of: 04/01/25 Subjective Subjective Interval history: The patient was evaluated bedside, no acute overnight events reported, Noted improvement in heart rate after transitioning from diltiazem drip to metoprolol XL. Started Eliquis 5 mg twice daily. The patient needs to follow-up with cardiology outpatient clinic with Dr. Wesley in 1 to 2 weeks of discharge from hospital. Exam Vital Signs Temp Pulse Resp BP Pulse Ox O2 Del Method 97.4 F 82 18 128/58 L 94 L Room Air 04/01/25 08:00 04/01/25 08:07 04/01/25 08:00 04/01/25 08:07 04/01/25 08:00 04/01/25 08:00 Narrative Exam General: Well appearing, well nourished, in no distress. Oriented x 3, normal mood and affect . Ambulating without difficulty. Skin: Good turgor, no rash, unusual bruising or prominent lesions Head: Normocephalic, atraumatic, no visible or palpable masses, depressions, or scaring. Eyes: Visual acuity intact, conjunctiva clear, sclera non-icteric, EOM intact, PERRL, no exudates or hemorrhages Heart: No cardiomegaly or thrills; irregular rate and rhythm, no murmur or gallop Lungs: Clear to auscultation and percussion. No rales, wheeze, or rhonchi Abdomen: Bowel sounds normal, no tenderness, organomegaly, masses, or hernia Back: Spine normal without deformity or tenderness, no CVA tenderness Extremities: No amputations or deformities, cyanosis, edema or varicosities, peripheral pulses intact Musculoskeletal: Normal gait and station. No misalignment, asymmetry, crepitation, defects, tenderness, masses, effusions, decreased range of motion, instability, atrophy or abnormal strength or tone in the head, neck, spine, ribs, pelvis or extremities. Objective Labs 04/01/25 05:37 04/01/25 05:37 Labs: Laboratory Results - last 24 hr 04/01/25 05:37 WBC 11.7 H RBC 5.08 Hgb 14.9 Hct 44.5 MCV 88 MCH 29.3 MCHC 33.5 RDW Std Deviation 40.5 Plt Count 318 Neut % (Auto) 68 Lymph % (Auto) 17 [place] % (Auto) 11 Eos % (Auto) 2 Baso % (Auto) 1 Neut # (Auto) 8.0 H Lymph # (Auto) 2.0 [place] # (Auto) 1.3 H Eos # (Auto) 0.2 Baso # (Auto) 0.2 Immature Gran # (Auto) 0.05 H Absolute Nucleated RBC 0.00 Immature Gran % 0 Nucleated RBC % 0 Sodium 139 Potassium 4.3 D Chloride 105 Carbon Dioxide 27.6 Anion Gap 6 L BUN 11 Creatinine 1.0 Estim Creat Clear Calc 96.1 eGFR > 60 BUN/Creatinine Ratio 11 L Glucose [address] Glu mg/dL 128 Hemoglobin A1c 6.1 H Calculated Osmolality 276 Calcium 8.9 Phosphorus 3.5 Magnesium 2.4 Quality Measures Quality Measures VTE prophylaxis Advance care planning discussed with:: patient Assessment & Plan Assessment Current Active Medications: Generic Name Dose Route Start Last Admin Trade Name Freq PRN Reason Stop Dose Admin Acetaminophen 650 mg 03/30/25 23:55 Acetaminophen 325 Mg Tablet PO 04/29/25 23:54 Q6H PRN Fever >100.4 or pain Enoxaparin Sodium 40 mg 03/31/25 09:00 04/01/25 08:07 Enoxaparin Sod Inj 40 Mg/0.4 Ml Syringe SC 04/14/25 08:59 40 mg QDAY TK Administration Metoprolol Succinate 100 mg 03/31/25 16:45 04/01/25 08:07 Metoprolol Succinate Xl 25 Mg Tabcr PO 04/30/25 16:44 100 mg QDAY TK Administration Plan Assessment & Plan Plan The patient is 64-year-old male with no significant past medical history presents to the ED with a chief complaint of subjective fevers body aches and chills for the past 5 days. The patient went to his PCPs office for evaluation, was found to have a rapid heart rate and was directed to go to the emergency room for further evaluation. Patient also denied nausea vomiting diarrhea. Patient did report that he fell over a week ago on his left shoulder, now continues to have pain on his left shoulder. Takes NSAIDs occasionally. Problems: 1. A-fib with RVR?now rate controlled 2. Elevated blood pressure without diagnosis of hypertension 3. Left shoulder pain, following mechanical fall In the ED patient was found to have A-fib RVR heart rate in the 170s, started on diltiazem drip, patient denied chest pain, shortness of breath, fatigue, lightheadedness, or palpitations. The patient reported he has no awareness of palpitations in the past, did not know if his heart was beating fast when he came to the ED this visit. Was initially started on diltiazem drip, rate controlled at 10 Mg per hour. Patient has no history of heart failure, unknown EF, recommend to start patient on metoprolol XL 100 Mg daily, discontinue diltiazem drip after 2 hours overlap with metoprolol. [id number] score 2, patient will require echocardiogram for evaluation of EF, we will continue with rate control strategy for now, the patient might require outpatient NORMAN and workup if cardioversion is possible. 04/01/2025 transitioned from diltiazem drip to metoprolol XL, tolerating well, continue with rate control for A-fib. ? Continue metoprolol XL 100 mg daily ? Monitor for hypotension or bradycardia ? Recommend anticoagulation as [id number] 2, annualized risk of stroke 2.2%, will need to go over risk benefit as well as affordability with patient to ensure compliance. ? Echocardiogram ordered. ? Recommended for patient to follow-up with outpatient cardiology in 1 to 2 weeks, tentative plan to arrange for NORMAN and possible cardioversion on outpatient basis, patient will need to be discharged on metoprolol and Eliquis. Rest of the management deferred to primary team. Thank you for cardiology consultation. We appreciate the opportunity to participate in this patient's care. Will continue to follow-up on this patient This case was discussed with turnstile collector, Dr. Wesley. Peri Fernandez MD PG3
--- NOTE | 2025-04-01 14:24 | ESPR_ITS ---
<Statement entered by Cruzito Velasquez MD - 04/01/25 22:59> Patient was examined and case was reviewed with team including attending physician. Note reviewed, I agree with most of its contents and agree with the patient's care as documented by Dr. Guerra Patient seen today at the bedside found awake, alert, orientedx3. No overnight events reported. Vital signs stable at this time. currently on sinus rhythm and on metoprolol XL 100mg for rate control after discontinuing Diltiazem drip. Patient was also transitioned to Eliquis for anticoagulation. Patient pending echocardiogram, however services not available at this time. Case discussed with my attending Dr. Raji Velasquez MD PGY-2 Documentation for date of: 04/01/25 Subjective Subjective Interval history: No overnight events. Evaluated at bedside. Started metoprolol XL 100mg QD and Eliquis 5mg BID per cardiology rec. Pending echo. Exam Vital Signs Temp Pulse Resp BP Pulse Ox O2 Del Method 96.9 F 84 16 129/95 H 96 Room Air 04/01/25 12:00 04/01/25 12:00 04/01/25 12:00 04/01/25 12:00 04/01/25 12:00 04/01/25 12:00 Narrative Exam General: Well appearing, well nourished, in no distress. Oriented x 3, normal mood and affect . Ambulating without difficulty. Skin: Good turgor, no rash, unusual bruising or prominent lesions Head: Normocephalic, atraumatic, no visible or palpable masses, depressions, or scaring. Eyes: Visual acuity intact, conjunctiva clear, sclera non-icteric, EOM intact, PERRL, no exudates or hemorrhages Heart: No cardiomegaly or thrills; irregular rate and rhythm, no murmur or gallop Lungs: Clear to auscultation and percussion. No rales, wheeze, or rhonchi Abdomen: Bowel sounds normal, no tenderness, organomegaly, masses, or hernia Back: Spine normal without deformity or tenderness, no CVA tenderness Extremities: No amputations or deformities, cyanosis, edema or varicosities, peripheral pulses intact Musculoskeletal: Normal gait and station. No misalignment, asymmetry, crepitation, defects, tenderness, masses, effusions, decreased range of motion, instability, atrophy or abnormal strength or tone in the head, neck, spine, ribs, pelvis or extremities. Objective Labs 04/02/25 05:41 04/02/25 05:41 Labs: Laboratory Results - last 24 hr 04/01/25 05:37 WBC 11.7 H RBC 5.08 Hgb 14.9 Hct 44.5 MCV 88 MCH 29.3 MCHC 33.5 RDW Std Deviation 40.5 Plt Count 318 Neut % (Auto) 68 Lymph % (Auto) 17 [place] % (Auto) 11 Eos % (Auto) 2 Baso % (Auto) 1 Neut # (Auto) 8.0 H Lymph # (Auto) 2.0 [place] # (Auto) 1.3 H Eos # (Auto) 0.2 Baso # (Auto) 0.2 Immature Gran # (Auto) 0.05 H Absolute Nucleated RBC 0.00 Immature Gran % 0 Nucleated RBC % 0 Sodium 139 Potassium 4.3 D Chloride 105 Carbon Dioxide 27.6 Anion Gap 6 L BUN 11 Creatinine 1.0 Estim Creat Clear Calc 96.1 eGFR > 60 BUN/Creatinine Ratio 11 L Glucose [address] Glu mg/dL 128 Hemoglobin A1c 6.1 H Calculated Osmolality 276 Calcium 8.9 Phosphorus 3.5 Magnesium 2.4 Quality Measures Quality Measures VTE prophylaxis Advance care planning discussed with:: patient Assessment & Plan Assessment Current Active Medications: Generic Name Dose Route Start Last Admin Trade Name Freq PRN Reason Stop Dose Admin Acetaminophen 650 mg 03/30/25 23:55 Acetaminophen 325 Mg Tablet PO 04/29/25 23:54 Q6H PRN Fever >100.4 or pain Apixaban 5 mg 04/01/25 21:00 Apixaban 2.5 Mg Tablet PO 05/01/25 20:59 BID [facility] Metoprolol Succinate 100 mg 03/31/25 16:45 04/01/25 08:07 Metoprolol Succinate Xl 25 Mg Tabcr PO 04/30/25 16:44 100 mg QDAY [facility] Administration Plan 64M with no known PMH admitted for new onset A fib rvr currently rate controlled with diltiazem drip 10mg/h. Cardiology consulted, started metoprolol xl 100mg QD and Eliquis 5mg BID. Pending echo. Pt currently rate controlled. #New onset a fib rvr Pt denies any past medical histroy, denies taking any prescriptional drug. Denies any cardiac history, alcohol use, drug use. Initial TSH 2.9. Free T4 1.48. FREDDY-VASc score of 2 (Age 64 +1, HTN + 1) 03/30 EKG showed A fib rvr with rate of 176. CXR unremarkable. 03/31 Pt still in a fib rvr with rate of 126. Increased diltiazem drip rate to 10mg/h. Card consulted, switch to metoprolol xl 100mg QD. Dx: - Repeat EKG as needed or new onset chest pain, sob. Tx: - Diltiazem 25mg x 1 - Card consulted, started metoprolol xl 100mg QD and Eliquis 5mg BID. - Consider amio for rhythm control - Pending echo Dispo: Tele DVT prophylaxis: SCDs GI prophylaxis: Not indicated Diet: Cardiac diet Lines: Peripheral IV Code status: Full code Case discussed with my senior resident Dr. Thrasher Case discussed with my attending Dr. Raji Scott [facility], DO PGY 1 Attending Provider Attestation/Addendum I have examined the patient, reviewed labs and imaging findings, discussed the case with the resident(s), and reviewed entered orders. I agree with the plan of care as outlined in this note, with these additional summaries/recommendations: Patient seen at bedside. No acute overnight events. He has no acute concerns today. Patient presented with new onset atrial fibrillation with rapid ventricular response. He has no history of recent bleeding or other contraindication for anticoagulation. He is currently hemodynamically stable. Patient's [id number] score now 2 points for prediabetes. Has bled score 1 point indicating 3.4% risk of bleed per year which is considered low risk. Continue EKG as needed for chest pain. Continue to monitor on telemetry. Monitor electrolytes closely. Echocardiogram pending. S/p dilt gtt. Started on metropolol and NOAC. Risks and benefits of anticoagulation explained. Cardiology following, recommendations appreciated. Recommend outpatient sleep study. Patient updated on the plan at and in agreement. All questions answered to satisfaction. Please see residents note for additional details and management. Dr. Raji MD
--- NOTE | 2025-04-01 15:10 | PC.SS ---
Patient is 64 year old male presenting to the hospital for AFIB w/ RVR. SANITATION ENGINEER made contact with patient at bedside and explained role and reason for visit. At bedside was Tamara, patient gave consent to have family present. Patient confirmed demographic information. Patient stated that his PCP is Dr. Waldrop last appointment was on Sunday. Patient is employed, does not use DME, would like to d/c home and family will provide transportation. PCP: Dr. Waldrop D/c: home Next of kin: Tamara [phone]
[2025-04-01] MEDS: APIXABAN 2.5 MG TABLET 5 MG PO (20:46)
[2025-04-02] VITALS (8 sets, daily range): BP systolic 113–141; BP diastolic 75–95; PULSE 81–108; RESP 14–22; TEMP 35.9–36.6; O2SAT 93–98; BMI 34.1; BMI 34.0
--- NOTE | 2025-04-02 04:29 | PC.NURSE ---
At approximately 04:17 04/02/2025 Pt. had gotten up to use the bathroom which lead to his HR elevating up to the 150's. RN went to assess after noticing this elevation and pt. reported no SOB, no Chest pain, or any feelings of distress. Pt. was then assisted to bed from the bathroom and educated him on the importance of the call v[place], and dangling his feet before standing up from a supine position. HR returned to the high 90's, low 100's after returning to bed. - Boaz Velasquez RN.
[2025-04-02 06:09] LABS: Basophils # (Auto) 0.1 Thou/mm3 (0.0-0.2); Basophils % (Auto) 1 % (0-2.5); Eosinophils # (Auto) 0.1 Thou/mm3 (0.0-0.5); Eosinophils % (Auto) 1 % (0-10); Hematocrit 44.1 % (41.0-53.0); Hemoglobin 14.9 g/dL (13.5-16.0); Immature Granulocytes Auto 0.04 Thou/mm3 (0.00-0.00); Lymphocytes # (Auto) 2.0 Thou/mm3 (1.0-4.8); Lymphocytes % (Auto) 20 % (10-50); Mean Corpuscular HGB Conc 33.8 g/dl (31.0-37.0); Mean Corpuscular Hemoglobin 29.4 pg (25.0-35.0); Mean Corpuscular Volume 87 fL (80-100); Monocytes # (Auto) 1.1 Thou/mm3 (0.0-0.8); Monocytes % (Auto) 11 % (0-12); Neutrophils # (Auto) 6.8 Thou/mm3 (1.8-7.7); Neutrophils % (Auto) 66 % (37-80); Nucleated Red Blood Cell # 0.00 Thou/mm3 (0.00-0.00); Nucleated Red Blood Cell % 0 /100 WBC (0); Platelet Count 293 Thou/mm3 (140-440); RDW Standard Deviation 39.8 fL (35.1-43.9); Red Blood Count 5.06 Miln/mm3 (4.50-5.90); White Blood Count 10.2 Thou/mm3 (3.8-10.6)
[2025-04-02 06:38] LABS: Anion Gap 10 (7-16); BUN/Creatinine Ratio 14 Ratio (12-20); Blood Urea Nitrogen 15 mg/dL (9-23); Calcium 9.0 mg/dL (8.3-10.6); Carbon Dioxide 25.5 mMol/L (20.0-31.0); Chloride 104 mMol/L (98-107); Creatinine (Component) 1.1 mg/dL (0.6-1.3); Estimated Creatinine Clearance 87.3 mL/min (>60); Glucose 105 mg/dL (74-106); Magnesium 1.7 mg/dL (1.6-2.6); Osmolality,Calculated 278 (275-295); Phosphorous 3.6 mg/dL (2.4-5.1); Potassium 4.5 mMol/L (3.4-5.1); Sodium 139 mMol/L (136-145); eGFR > 60 See Note
--- NOTE | 2025-04-02 08:01 | PD.RESPRO ---
Documentation for date of: 04/02/25 Subjective Subjective Interval history: Patient evaluated bedside, reported no acute discomfort, significantly better since admission. Eager to go home. Noted no acute telemetry events, but patient continues to be in A-fib RVR, heart rate reaching as high as 132/min, sustaining low 100s. Patient blood pressure within normal range, recommend giving an additional dose of metoprolol XL 50 mg in the afternoon. The patient can be discharged on metoprolol XL 100 mg twice daily and Eliquis 5 mg twice daily. Recommend to follow-up with cardiology clinic Dr. Wesley within 1 week for further workup. Patient likely has persistent A-fib, might consider NORMAN with cardioversion at a later date on outpatient basis. Exam Vital Signs Temp Pulse Resp BP Pulse Ox O2 Del Method 96.7 F L 87 14 126/95 H 98 Room Air 04/02/25 04:00 04/02/25 04:00 04/02/25 04:00 04/02/25 04:00 04/02/25 04:00 04/02/25 04:00 Narrative Exam General: Well appearing, well nourished, in no distress. Oriented x 3, normal mood and affect . Ambulating without difficulty. Skin: Good turgor, no rash, unusual bruising or prominent lesions Head: Normocephalic, atraumatic, no visible or palpable masses, depressions, or scaring. Eyes: Visual acuity intact, conjunctiva clear, sclera non-icteric, EOM intact, PERRL, no exudates or hemorrhages Heart: No cardiomegaly or thrills; irregular rate and rhythm, no murmur or gallop Lungs: Clear to auscultation and percussion. No rales, wheeze, or rhonchi Abdomen: Bowel sounds normal, no tenderness, organomegaly, masses, or hernia Back: Spine normal without deformity or tenderness, no CVA tenderness Extremities: No amputations or deformities, cyanosis, edema or varicosities, peripheral pulses intact Musculoskeletal: Normal gait and station. No misalignment, asymmetry, crepitation, defects, tenderness, masses, effusions, decreased range of motion, instability, atrophy or abnormal strength or tone in the head, neck, spine, ribs, pelvis or extremities. Objective Labs 04/02/25 05:41 04/02/25 05:41 Labs: Laboratory Results - last 24 hr 04/02/25 05:41 WBC 10.2 RBC 5.06 Hgb 14.9 Hct 44.1 MCV 87 MCH 29.4 MCHC 33.8 RDW Std Deviation 39.8 Plt Count 293 Neut % (Auto) 66 Lymph % (Auto) 20 [place] % (Auto) 11 Eos % (Auto) 1 Baso % (Auto) 1 Neut # (Auto) 6.8 Lymph # (Auto) 2.0 [place] # (Auto) 1.1 H Eos # (Auto) 0.1 Baso # (Auto) 0.1 Immature Gran # (Auto) 0.04 H Absolute Nucleated RBC 0.00 Immature Gran % 0 Nucleated RBC % 0 Sodium 139 Potassium 4.5 Chloride 104 Carbon Dioxide 25.5 Anion Gap 10 BUN 15 Creatinine 1.1 Estim Creat Clear Calc 87.3 eGFR > 60 BUN/Creatinine Ratio 14 Glucose 105 Calculated Osmolality 278 Calcium 9.0 Phosphorus 3.6 Magnesium 1.7 Quality Measures Quality Measures VTE prophylaxis Advance care planning discussed with:: patient Assessment & Plan Assessment Current Active Medications: Generic Name Dose Route Start Last Admin Trade Name Freq PRN Reason Stop Dose Admin Acetaminophen 650 mg 03/30/25 23:55 Acetaminophen 325 Mg Tablet PO 04/29/25 23:54 Q6H PRN Fever >100.4 or pain Apixaban 5 mg 04/01/25 21:00 04/01/25 20:46 Apixaban 2.5 Mg Tablet PO 05/01/25 20:59 5 mg BID TK Administration Magnesium Sulfate 4 gm in 50 mls @ 12.5 mls/hr 04/02/25 07:32 Magnesium Sulfate Ivpb IV 04/02/25 11:31 X1 ONE Metoprolol Succinate 100 mg 03/31/25 16:45 04/01/25 08:07 Metoprolol Succinate Xl 25 Mg Tabcr PO 04/30/25 16:44 100 mg QDAY TK Administration Sennosides 1 tab 04/01/25 14:43 Senna/Docusate Sod 1 Tab Tablet PO 05/01/25 14:42 QDAY PRN CONSTIPATION Protocol Plan Assessment & Plan Plan The patient is 64-year-old male with no significant past medical history presents to the ED with a chief complaint of subjective fevers body aches and chills for the past 5 days. The patient went to his PCPs office for evaluation, was found to have a rapid heart rate and was directed to go to the emergency room for further evaluation. Patient also denied nausea vomiting diarrhea. Patient did report that he fell over a week ago on his left shoulder, now continues to have pain on his left shoulder. Takes NSAIDs occasionally. Problems: 1. A-fib with RVR?now rate controlled 2. Elevated blood pressure without diagnosis of hypertension 3. Left shoulder pain, following mechanical fall In the ED patient was found to have A-fib RVR heart rate in the 170s, started on diltiazem drip, patient denied chest pain, shortness of breath, fatigue, lightheadedness, or palpitations. The patient reported he has no awareness of palpitations in the past, did not know if his heart was beating fast when he came to the ED this visit. Was initially started on diltiazem drip, rate controlled at 10 Mg per hour. Patient has no history of heart failure, unknown EF, recommend to start patient on metoprolol XL 100 Mg daily, discontinue diltiazem drip after 2 hours overlap with metoprolol. [id number] score 2, patient will require echocardiogram for evaluation of EF, we will continue with rate control strategy for now, the patient might require outpatient NORMAN and workup if cardioversion is possible. 04/01/2025 transitioned from diltiazem drip to metoprolol XL, tolerating well, continue with rate control for A-fib. ? Continue metoprolol XL 100 mg daily, give additional dose of metoprolol XL 50 mg in the afternoon, due to heart rate continuously above 100, reaching as high as 132 and occasionally. Monitor for hypotension or bradycardia ? Recommend anticoagulation as [id number] 2, annualized risk of stroke 2.2%, continue Eliquis 5 mg twice daily ? Bedside echocardiogram was done which showed good biventricular function and size. Noted no gross valvular defects or wall motion abnormalities. ? The patient can be discharged on metoprolol XL 100 mg twice daily and Eliquis 5 mg twice daily. Recommend to follow-up with cardiology clinic Dr. Wesley within 1 week for further workup. Patient likely has persistent A-fib, might consider NORMAN with cardioversion at a later date on outpatient basis. Rest of the management deferred to primary team. Thank you for cardiology consultation. We appreciate the opportunity to participate in this patient's care. Will continue to follow-up on this patient This case was discussed with customer project manager, Dr. Wesley. Peri Fernandez MD PG3
[2025-04-02] MEDS: METOPROLOL SUCCINATE XL 25 MG TABCR 100 MG PO (08:08)
[2025-04-02] MEDS: APIXABAN 2.5 MG TABLET 5 MG PO ×2 (08:08→20:11)
[2025-04-02] MEDS: Magnesium Sulfate 4 GM Ivpb 4 GM/50 ML BAG IV (08:09)
--- NOTE | 2025-04-02 13:49 | PC.SS ---
SS UPDATE: Patient pending echo.
--- NOTE | 2025-04-02 14:02 | ESDS_ITS ---
<Statement entered by Cruzito Velasquez MD - 04/02/25 14:40> Patient was examined and case was reviewed with team including attending physician. Note reviewed, I agree with most of its contents and agree with the patient's care as documented by Dr. Mari Velasquez MD PGY-2 Planned Discharge Date 04/02/25 DS: Providers Provider Date of admission: 03/30/25 23:52 Primary care physician: Suleiman Waldrop MD Admitting Provider: Melvin Craig MD Attending Provider on Admission: Rogelio Alegria MD Consults: 03/30/25 23:49 Consult to Cardiology Routine Comment: New onset afib w/ RVR, stable Consulting Provider: Percy Wesley Attending Provider on DC: Rogelio Alegria MD Discharging Provider: Tyler Guerra DO Anticipated date of discharge: 04/02/25 DS: Diagnosis Problem List Completed Was Problem List Reviewed/Reconciled?: Yes Hospital Course Hospital Course Hospital course: Mr. Goldman is a 64M with no known past medical history admitted for a fib rvr. Pt was sent over by his PCP due to elevated heart rate. Patient denied chest pain, shortness of breath, headache, palpitations. Initial EKG in the ER showed a fib rvr with a rate of 176. During this admission, cardiology was consulted. Pt has a FREDDY-VASc score of 2. Pt was put on metoprolol succinate extended release 100mg PO QD and Eliquis 5mg PO BID per cardiology recommendation. Risk and benefit regarding anticoagulation discussed with pt. Pt understood and agreed. Recommended for patient to follow-up with outpatient cardiology in 1 to 2 weeks, tentative plan to arrange for NORMAN and possible cardioversion on outpatient basis. Of note, pt's A1C at this admission was 6.1, pt was informed about his prediabetes and recommended diet and lifestyle modification. Pt's atrial fibrillation is currently rate controlled with metoprolol succinate 100mg at time of discharge. Pt is medically and physically stable for discharge. Diagnosis #A fib rvr rate controlled #Prediabetes Discharge Plan: Follow up with primary care physician within 1 week of discharge Follow up with Cardiology within 2 weeks of discharge in regards to further work up of your atrial fibrillation for possible NORMAN and cardioversion You have been prescribed Eliquis which is a blood thinner please take this medi cation as prescribed if you fall and hit your head please come to the ED as you can be bleeding inside your head. You have been prescribed Metoprolol for your fast heart rate. Should your symptoms recur or worsen patient is instructed to return to the ED. Case discussed with my senior resident Dr. Thrasher Case discussed with my attending Dr. Raji Guerra DO PGY 1 Time Spent with Patient Time attestation: Total time spent providing and/or coordinating discharge services: Time spent: Greater than 30 minutes Exam Vital Signs Temp Pulse Resp BP Pulse Ox O2 Del Method 96.8 F 86 22 H 120/80 93 L Room Air 04/02/25 12:04/02/25 12:04/02/25 12:04/02/25 12:04/02/25 12:04/02/25 12:00 Narrative Exam General: Well appearing, well nourished, in no distress. Oriented x 3, normal mood and affect . Ambulating without difficulty. Skin: Good turgor, no rash, unusual bruising or prominent lesions Head: Normocephalic, atraumatic, no visible or palpable masses, depressions, or scaring. Heart: No cardiomegaly or thrills; irregular rate and rhythm, no murmur or gallop Lungs: Clear to auscultation and percussion. No rales, wheeze, or rhonchi Abdomen: Bowel sounds normal, no tenderness, organomegaly, masses, or hernia Back: Spine normal without deformity or tenderness, no CVA tenderness Extremities: No amputations or deformities, cyanosis, edema or varicosities, peripheral pulses intact Musculoskeletal: Normal gait and station. No misalignment, asymmetry, crepitation, defects, tenderness, masses, effusions, decreased range of motion, instability, atrophy or abnormal strength or tone in the head, neck, spine, ribs, pelvis or extremities. Discharge Plan Plan Patient Disposition: HOME (Self Care) Care Plan Goals: Follow up with primary care physician within 1 week of discharge Follow up with Cardiology within 2 weeks of discharge in regards to further work up of your atrial fibrillation for possible NORMAN and cardioversion You have been prescribed Eliquis which is a blood thinner please take this med ication as prescribed if you fall and hit your head please come to the ED as you can be bleeding inside your head. You have been prescribed Metoprolol for your fast heart rate. Should your symptoms recur or worsen patient is instructed to return to the ED. Prescriptions/Referrals Prescriptions/Med Rec: New Eliquis 5 mg tablet 5 mg PO BID 30 Days Qty: 60 0RF metoprolol succinate 100 mg tablet extended release 24 hr 100 mg PO BID 30 Days Qty: 60 0RF Referrals: Percy Wesley MD [Referring Provider] - (FOLLOW UP WITHIN 2 WEEKS OF DISCHARGE. CALL FOR APPOINTMENT) Suleiman Waldrop MD [Primary Care Provider] - (FOLLOW UP WITHIN 1 WEEK OF DISCHARGE ) Patient/Caregiver Discharge Instructions Meds to Beds: No Education Materials: AFL/Afib, Understanding Atrial Fibrillation Print Language: Estonian Stand Alone Forms: Crissy Award Info., Patient Portal Info Letter Discharge Order Discharge Orders: Discharge (Routine); Ordered 04/02/25 Ordered By: Cruzito Velasquez Quality Discharge Quality Measures none MD Attestestation MD Attestation I have examined the patient, reviewed labs and imaging findings, discussed the case with the resident(s), and reviewed entered orders. I agree with the plan of care as outlined in this note. Time Spent: [address] Raji MD
[2025-04-02] MEDS: METOPROLOL SUCCINATE XL 25 MG TABCR 50 MG PO (17:52)
--- NOTE | 2025-04-02 19:21 | PC.NURSE ---
Per Dr. Neville patient is okay to be discharge to home now, no need to wait four hours after last dose of metoprolol. MD Neville notified patient and (Tamara) that they can be discharged now.
== END 2025-04-02 20:19 | disposition home or self-care (01) | DRG 310 ==
LOC: SERX 23:08 → SERHOLD 03-31 00:40 → S2NX 03-31 14:52
PROVIDERS: Student in an Organized Health Care Education/Training Program; Admitting Provider Student in an Organized Health Care Education/Training Program; Emergency Provider Emergency Medicine; PCP Family Medicine; Visit Provider Student in an Organized Health Care Education/Training Program
DX: I48.19 Other persistent atrial fibrillation (principal); I10 Essential (primary) hypertension; R73.03 Prediabetes; Z79.01 Long term (current) use of anticoagulants
CPT/HCPCS: 36415; 71045; 80048; 80053; 80061; 81001; 82248; 83036; 83605; 83735; 83880; 84100; 84145; 84439; 84443; 84484; 85025; 85379; 85610; 85652; 85730; 86140; 87040; 87400; 87811; 93005; 96365; 96366; 99284; J1650; J3475; J3490; A9270

== ENCOUNTER → 2025-04-07 | Outpatient (CLI) | payer BC, OTHER, SELFPAY ==
--- NOTE | 2025-04-07 09:32 | XR_ITS ---
Examination: Shoulder,left, 3 views Technique: Shoulder AP internal rotation, AP external rotation, Y view shoulder, 3 views Exam date and time :April 07, 2025 1019 hours INDICATIONS: Patient fell 2 months ago with injury to the shoulder, shoulder pain FINDINGS: Moderate narrowing glenohumeral joint Prominent osteopenia No shoulder fracture or dislocation IMPRESSION: No shoulder fracture or dislocation
== END | disposition home or self-care (01) ==
PROVIDERS: PCP Family Medicine; Referring Provider Physician Assistant; Visit Provider Physician Assistant
DX: S49.92XA Unspecified injury of left shoulder and upper arm, initial encounter (principal); W19.XXXA Unspecified fall, initial encounter
CPT/HCPCS: 73030

== ENCOUNTER 2025-05-21 10:01 | Outpatient (CLI) | payer BC, OTHER, SELFPAY ==
--- NOTE | 2025-05-20 12:47 | EKG_ITS ---
[facility] Test Date: 2025-05-20 Pat Name: SARA OROZCO Department: Room: - Gender: Male Supervisor [employer]: ROSE : 1960 Requested By: Percy Wesley Order Number: [id number] Reading MD: Percy Wesley Measurements Intervals [place] Rate: 82 P: OK: QRS: -20 QRSD: 99 T: 18 QT: 364 QTc: 426 Interpretive Statements ATRIAL FIBRILLATION ABNORMAL RHYTHM ECG Compared to ECG 03/30/2025 21:02:01 Left-axis deviation no longer present /store/S0/[id number]/[id number].pdf
[2025-05-20 13:15] LABS: Basophils # (Auto) 0.1 Thou/mm3 (0.0-0.2); Basophils % (Auto) 1 % (0-2.5); Eosinophils # (Auto) 0.1 Thou/mm3 (0.0-0.5); Eosinophils % (Auto) 2 % (0-10); Hematocrit 41.7 % (41.0-53.0); Hemoglobin 14.0 g/dL (13.5-16.0); Immature Granulocytes Auto 0.06 Thou/mm3 (0.00-0.00); Lymphocytes # (Auto) 1.8 Thou/mm3 (1.0-4.8); Lymphocytes % (Auto) 23 % (10-50); Mean Corpuscular HGB Conc 33.6 g/dl (31.0-37.0); Mean Corpuscular Hemoglobin 29.5 pg (25.0-35.0); Mean Corpuscular Volume 88 fL (80-100); Monocytes # (Auto) 0.9 Thou/mm3 (0.0-0.8); Monocytes % (Auto) 12 % (0-12); Neutrophils # (Auto) 4.9 Thou/mm3 (1.8-7.7); Neutrophils % (Auto) 62 % (37-80); Nucleated Red Blood Cell # 0.00 Thou/mm3 (0.00-0.00); Nucleated Red Blood Cell % 0 /100 WBC (0); Platelet Count 302 Thou/mm3 (140-440); RDW Standard Deviation 41.2 fL (35.1-43.9); Red Blood Count 4.75 Miln/mm3 (4.50-5.90); White Blood Count 8.0 Thou/mm3 (3.8-10.6)
[2025-05-20 13:29] LABS: INR 1.0 (0.9-1.3); Partial Thromboplastin Time 32.2 Seconds (22.0-36.0); Prothrombin Time 11.0 Seconds (9.0-12.2)
[2025-05-20 13:46] LABS: Anion Gap 8 (7-16); BUN/Creatinine Ratio 9 Ratio (12-20); Blood Urea Nitrogen 9 mg/dL (9-23); Calcium 9.4 mg/dL (8.3-10.6); Carbon Dioxide 28.1 mMol/L (20.0-31.0); Chloride 105 mMol/L (98-107); Creatinine (Component) 1.0 mg/dL (0.6-1.3); Glucose 93 mg/dL (74-106); Osmolality,Calculated 279 (275-295); Potassium 3.8 mMol/L (3.4-5.1); Sodium 141 mMol/L (136-145); eGFR > 60 See Note
[2025-05-20 13:59] VITALS: BMI 33.9
[2025-05-21] VITALS (10 sets, daily range): BP systolic 135–187; BP diastolic 70–128; PULSE 63–110; RESP 14–20; TEMP 37.1; O2SAT 95–100
--- NOTE | 2025-05-21 11:30 | ECHO_ITS ---
Transesophageal Echo Report Ht (in): 72 Wt (lb): 246 Exam Location: Echo Lab Status: Outpatient [employer]upal Php Developer: Anisa Becerra Indications: Procedure Performed: BP: 139 / 101 HR: 100 Medications 3mg versed 75 fentanyl FINDINGS Left Ventricle Normal left ventricular size, wall thickness, systolic function with no obvious regional wall motion abnormalities. Normal left ventricular diastolic filling pattern for age. The ejection fraction is visually estimated at 55-60 %. Right Ventricle The right ventricle is normal in size and systolic function. Left Atrium The left atrium is normal by two-dimensional, color flow and Doppler imaging with no structural abnormalities, no thrombus formation present. Right Atrium The right atrium is normal by two-dimensional imaging, color flow and Doppler imaging with no structural abnormalities, no thrombus formation present. Atrial Appendages The left atrial appendage appears normal with no evidence for thrombus. Atrial Septum An intravenous agitated saline injection indicated a [id number] shunt across the atrial septum with Valsalva release by agitation saline injection. Aorta The aorta is normal by two-dimensional, color flow and Doppler interrogation. Mitral Valve The mitral valve is normal by two-dimensional, color flow and Doppler interrogation. [id number] mitral regurgitation. Aortic Valve The aortic valve is trileaflet and normal by two-dimensional, color flow and Doppler interrogation. There is no significant aortic valve regurgitation. Tricuspid Valve The tricuspid valve is normal by two-dimensional, color flow and Doppler interrogation. There is trace tricuspid valve regurgitation. Pulmonic Valve The pulmonic valve is normal by two-dimensional, color flow and Doppler interrogation. There is no significant pulmonic valve regurgitation. Vessels The pulmonary artery appears normal. The inferior vena cava pulmonary and hepatic veins appear normal. Pericardium The pericardium is normal by two-dimensional imaging. There is no significant pericardial effusion. CONCLUSIONS Indication: Atrial fibrilation Medication Versed 3 mg Fentanyl 75 mcg Bubble study positive for PFO with right to left shunt. No LA/ JACKLYN thrombus. LV systolic function normal. Indeterminate LV diastolic function due to A-fib. EF estimated at 55-60% Normal RV size and function. Mild to moderate MR and Trace to mild TR. No pericardial effusion. Percy Wesley (Electronically Signed) Final Date: 21 May 2025 19:37
[2025-05-21] MEDS: BENZOCAINE 20% (Hurricaine) SPRAY 1 DOSE TOP (11:44)
[2025-05-21] MEDS: SODIUM CHLORIDE 0.9% 500 ML 500 ML 30 ML IV (11:44)
[2025-05-21] MEDS: ONDANSETRON INJ 2 MG/ML INJ 2 ML 4 MG IVP (11:45)
[2025-05-21] MEDS: fentaNYL CIT INJ 50 mCg/ML AMP 2ML 100 MCG IVP (11:46)
[2025-05-21] MEDS: MIDAZOLAM INJ 1 MG/ML VIAL 2 ML 5 MG IVP (11:46)
== END 2025-05-21 13:04 | disposition home or self-care (01) ==
LOC: S2EX 12:17 → SCCL 12:32
PROVIDERS: PCP Family Medicine; Referring Provider Internal Medicine Cardiovascular Disease; Visit Provider Internal Medicine Cardiovascular Disease
PROC: 5A2204Z Restoration of Cardiac Rhythm, Single (ICD-10-PCS; principal; 2025-05-21 11:15)
PROC: (CPT 93312; 2025-05-21 11:15)
DX: I08.1 Rheumatic disorders of both mitral and tricuspid valves (principal); I48.0 Paroxysmal atrial fibrillation; E66.9 Obesity, unspecified; I10 Essential (primary) hypertension; Z01.810 Encounter for preprocedural cardiovascular examination
CPT/HCPCS: 36415; 80048; 85025; 85610; 85730; 93005; 93312; 99152; J2250; J2405; J3010; J7999; A9270